=== PATIENT | male | born 1990 | race American Indian/Alaskan Native ===

== ENCOUNTER 2020-02-23 11:48 | Emergency (ER) | payer SELFPAY ==
--- NOTE | 2020-02-23 11:58 | Emergency Department Report ---
ED ENT HPI - General Stated complaint: ALLERGIES/ITCHY/WORK NOTE Time Seen by Provider: 02/23/20 11:53 Source: patient Limitations: No Limitations - History of Present Illness Initial comments: This is a 29-year-old male nontoxic well in appearance with no signs of distress presents to the ED with complaint of itchy throat and work excuse. Patient stated has seasonal allergies and started to take OTC tylenol cold which stated symptoms is improving and subsiding. Denies any pain or any other complaints. Patient denies any drooling or hoarseness. Patient denies any other symptoms. Denies any fever, chills, headache, nausea, vomiting, chest pain or SOB. Denies any other complaints. -: days(s) Severity scale (0 -10): 0 Improves with: none Worsens with: none Associated Symptoms: denies: fever, cough, gum swelling, toothache, pain with swallowing, sore throat, tinnitus, hearing loss, discharge from ear, rhinorrhea - Related Data Allergies Allergy/AdvReac Type Severity Reaction Status Date / Time No Known Allergies Allergy Verified 02/23/20 11:58 ED Dental HPI - General Stated complaint: ALLERGIES/ITCHY/WORK NOTE Time Seen by Provider: 02/23/20 11:53 - Related Data Allergies Allergy/AdvReac Type Severity Reaction Status Date / Time No Known Allergies Allergy Verified 02/23/20 11:58 ED Review of Systems ROS: Stated complaint: ALLERGIES/ITCHY/WORK NOTE Other details as noted in HPI Constitutional: denies: chills, fever Eyes: denies: eye pain, eye discharge, vision change ENT: denies: ear pain, throat pain Respiratory: denies: cough, shortness of breath, wheezing Cardiovascular: denies: chest pain, palpitations Endocrine: no symptoms reported Gastrointestinal: denies: abdominal pain, nausea, diarrhea Genitourinary: denies: urgency, dysuria Musculoskeletal: denies: back pain, joint swelling, arthralgia Skin: denies: rash, lesions Neurological: denies: headache, weakness, paresthesias Psychiatric: denies: anxiety, depression Hematological/Lymphatic: denies: easy bleeding, easy bruising ED Physical Exam - General General appearance: alert, in no apparent distress - Head Head exam: Present: atraumatic, normocephalic - Eye Eye exam: Present: normal appearance - ENT ENT exam: Present: normal exam, normal orophraynx, mucous membranes moist, other (uvula midline. no swelling) - Neck Neck exam: Present: normal inspection, full ROM. Absent: tenderness, meningismus, lymphadenopathy - Respiratory Respiratory exam: Absent: respiratory distress - Cardiovascular Cardiovascular Exam: Present: regular rate - Rectal Rectal exam: Present: deferred - Extremities Exam Extremities exam: Present: full ROM - Back Exam Back exam: Present: full ROM - Neurological Exam Neurological exam: Present: alert, oriented X3, normal gait - Psychiatric Psychiatric exam: Present: normal affect, normal mood - Skin Skin exam: Present: warm, dry, intact, normal color. Absent: rash ED Course Vital Signs 02/23/20 11:56 Temperature 98.6 F Pulse Rate 94 H Respiratory 20 Rate Blood Pressure 141/87 O2 Sat by Pulse 100 Oximetry - Reevaluation(s) Reevaluation #1: 02/23/20 11:58 Patient is speaking in full sentences with no signs of distress noted. ED Medical Decision Making - Medical Decision Making EDcuated on OTC treatment such as claritian. Patient was instructed to Follow-up with a primary care doctor in 3-5 days or if symptoms worsen and continue return to emergency room as soon as possible. At time of discharge, the patient does not seem toxic or ill in appearance. No acute signs of distress noted. Patient agrees to discharge treatment plan of care. No further questions noted by the patient. Critical care attestation.: If time is entered above; I have spent that time in minutes in the direct care of this critically ill patient, excluding procedure time. ED Disposition Clinical Impression: Encounter to obtain excuse from work, Seasonal allergies Disposition: MED SCREENING EXAM-LEFT Is pt being admited?: No Does the pt Need Aspirin: No Condition: Stable Instructions: Allergic Rhinitis (ED) Additional Instructions: Follow-up with a primary care doctor in 3-5 days or if symptoms worsen and continue return to emergency room as soon as possible. Referrals: PRIMARY MD [place] [Referring] - 3-5 Days HOLLEY HAWTHORNE MD [Staff Physician] - 3-5 Days [facility] [Provider Group] - 3-5 Days Forms: Work/School Release Form(ED)
[2020-02-23 11:59] VITALS: BP 141/87
== END 2020-02-23 12:24 | disposition left against medical advice (07) ==
LOC: ED 11:48
DX: L29.8 Other pruritus (principal); Z53.21 Procedure and treatment not carried out due to patient leaving prior to being seen by health care provider
CPT/HCPCS: 99281

== ENCOUNTER 2020-03-24 15:34 | Emergency (ER) | payer SELFPAY ==
[2020-03-24 15:57] VITALS: BP 124/67
[2020-03-24] MEDS ORDERED: DIPHtheria,PERTUSSIS(ACELL),TETANUS VACCINE/PF 0.5 ML VIAL IM ONE (19:46)
[2020-03-24] MEDS ORDERED: NEOMY 3.5 MG/BACIT 400 UNITS/POLY B 5000 UNITS/GM OINT PACKET TP ONE (19:46)
[2020-03-24] MEDS ORDERED: IBUPROFEN 600 MG TAB PO ONE (19:46)
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
[2020-03-24] MEDS ORDERED: ONDANSETRON 4 MG ODT TAB PO ONE (20:13)
[2020-03-24] MEDS ORDERED: SULFAMETHOXAZOLE/TRIMETHOPRIM 800/160MG DS TAB PO ONE (20:13)
[2020-03-24] MEDS ORDERED: ACETAMINOPHEN 500 MG TAB PO ONE (20:13)
== END 2020-03-24 20:12 | disposition left against medical advice (07) ==
LOC: ED 15:34
DX: S91.134A Puncture wound without foreign body of right lesser toe(s) without damage to nail, initial encounter (principal); X58.XXXA Exposure to other specified factors, initial encounter; Y93.89 Activity, other specified; Y92.89 Other specified places as the place of occurrence of the external cause; Y99.8 Other external cause status
CPT/HCPCS: 90715; 99282; A6250; Q0162